=== PATIENT | female | born 1975 | race Caucasian/White ===

== ENCOUNTER 2018-11-17 06:04 | Day surgery (SDC) | payer BC ==
[~2018-11-17] VITALS: Ht 160 cm; Wt 55.5 kg
[~2018-11-17 06:04] MED LIST: CLARITIN-D 121 EACH PO; LEVSOD125 PO; MELO7.5; MELO7.5 PO
--- NOTE | 2018-11-17 06:59 | NUR ---
Ambulatory in Day Surgery History, Chart, Medications and Allergies reviewed before start of procedure. Lungs clear T/O to Auscultation. Patient confirms NPO status and agrees with scheduled surgery. Pre-Op teaching done. Pt verbalizes understanding.
--- NOTE | 2018-11-17 20:06 | NUR ---
POST OP: REPORT RECIEVED FROM VENDOR ANALYST. PT TO UNIT AT ABOUT 1232, FAMILY AT BEDSIDE. UPON ASSESSMENT PT IS IN NO VISABLE DISTRESS, IS A/O. VSS. PT DENIES NAUSEA, REPORTS 5/10 PAIN. SURGICAL SITE WNL. SOME NUMBNESS. ADMISSION ASSESSMENT COMPLETED AND TXA GIVEN. PT REPORT PAST NAUSEA AFTER SURGERY, WILL GO SLOW WITH PO INTAKE. PT GIVEN JELLO AND CRACKERS WITH NO NAUSEA. ZOFRAN GIVEN WITH PO PAIN MED. WILL CTM PT STATUS.
--- NOTE | 2018-11-17 20:16 | NUR ---
SUMMARY: NO ACUTE CHANGE SINCE POST OP. PT VSS, DID HAVE 300ML EMESIS, MEDICATED PER EMAR. PT ABLE TO AMBULATE TO COMMODE AND VOID. SURGICAL SITE WNL. NO SAFETY CONCERNS AT THIS TIME. WILL PASS REPORT TO DAY RN
[2018-11-18 04:24] LABS: BASOPHILS ABSOLUTE AUTO 0.01 K/mm3 (0.00-0.23); BASOPHILS PERCENT AUTO 0 % (0-2); EOSINOPHILS ABSOLUTE AUTO 0.02 K/mm3 (0.00-0.68); EOSINOPHILS PERCENT AUTO 0 % (0-6); Hematocrit 30.5 % (33.0-51.0); Hemoglobin 9.9 g/dL (11.5-16.0); IMMATURE GRAN ABSOLUTE AUTO 0.04 K/mm3 (0.00-0.10); IMMATURE GRAN PERCENT AUTO 1 % (0-1); LYMPHOCYTES ABSOLUTE AUTO 1.59 K/mm3 (0.84-5.20); LYMPHOCYTES PERCENT AUTO 18 % (21-46); MONOCYTES ABSOLUTE AUTO 0.72 K/mm3 (0.16-1.47); MONOCYTES PERCENT AUTO 8 % (4-13); Mean Corpuscular HGB 31.3 pg (26.0-34.0); Mean Corpuscular HGB Conc 32.5 g/dL (31.5-36.5); Mean Platelet Volume 9.4 fL (9.1-12.4); NEUTROPHILS ABSOLUTE AUTO 6.48 K/mm3 (1.96-9.15); NEUTROPHILS PERCENT AUTO 73 % (41-73); Platelet Count 210 K/mm3 (150-400); RDW Coefficient Variation 12.7 % (11.7-14.2); RDW Standard Deviation 44.8 fL (35.1-46.3); Red Blood Cell Count 3.16 M/mm3 (3.80-5.20); White Blood Cell Count 8.86 K/mm3 (4.00-11.30)
[2018-11-18 04:34] LABS: Mean Corpuscular Volume 97 fL (80-100)
[2018-11-18 04:36] LABS: Anion Gap 1 mmol/L (6-16); Blood Urea Nitrogen 7 mg/dL (8-24); Bun/Creatinine Ratio 13.9 (12.0-20.0); CO2, Blood 31 mmol/L (21-32); Chloride, Blood 111 mmol/L (98-108); Creatinine, Blood 0.51 mg/dL (0.40-1.00); Glomerular Filtration Rate >60 (60-); Glucose, Blood 110 mg/dL (70-99); Magnesium, Blood 1.9 mg/dL (1.6-2.4); Sodium, Blood 143 mmol/L (136-145)
--- NOTE | 2018-11-18 07:45 | NUR ---
DR CROW HERE RECENTLY AND CHANGED DRESSING. DISCUSSED VS, PAIN MEDICATION. PT DENIES DIZZINESS.
--- NOTE | 2018-11-18 07:49 | NUR ---
SUMMARY: POD [address] CROW. PT REMAINS HYPOTENSIVE THROUGHOUT SHIFT BUT DENIES DIZZINESS, VISION CHANGES OR SOB WHEN UP FOR BRP BUT REMAINS STEADY ON FEET WITH 1 PERSON ASSIST WITH GB AND FWW. PAIN WELL CONTROLLED DURING THIS SHIFT WITH 10MG ROXICODONE. PT MEDICATED WITH 5MG ROXICODONE THIS AM FOR CONTINUED HYPOTENSION AND MILD TO MODERATE RIGHT KNEE PAIN. TOLERATING PO INTAKE WELL, N/V APPEARS RESOLVED, VOIDING. ANTICIPATE PT/OT TODAY AND DC HOME.
[2018-11-18] MEDS ORDERED: ASPI325EC PO (10:08)
[2018-11-18] MEDS ORDERED: ROXICODONE5 MG PO (10:09)
[2018-11-18] MEDS ORDERED: PROM12.5S PO (10:16)
--- NOTE | 2018-11-18 13:51 | NUR ---
DISCHARGE; PT EATING AND DRINKING WELL. PT UP AND AMBULATED APPROX 400 FEET WITHOUT BECOMING DIZZY OR LIGHTHEADED. PT/FAMILY REPORTS UNDERSTANDING OF DISCHARGE INSTRUCTIONS. PT SENT WITH DRESSING SUPPLIES AND ICE MACHINE AND EDGARDO HOSE PER PT REQ. PT VOIDING WITHOUT DIFFICULTY.
== END 2018-11-18 14:01 | disposition home or self-care (01) ==
LOC: ORSCMMR 06:04 → ORD 10:30 → SURS 11:45 → ORSCMMR 11-18 14:01 → SURS 11-18 14:01
PROVIDERS: Orthopaedic Surgery
PROC: 8E0YXBZ Computer Assisted Procedure of Lower Extremity (ICD-10-PCS; principal; 2018-11-17 07:30)
PROC: 0SRC0J9 Replacement of Right Knee Joint with Synthetic Substitute, Cemented, Open Approach (ICD-10-PCS; principal; 2018-11-17 07:30)
DX: M17.11 Unilateral primary osteoarthritis, right knee (principal); Z79.899 Other long term (current) drug therapy
CPT/HCPCS: 36415; 73560-RT; 80048; 83735; 85025; 88300; 97110; 97116; 97162; 97530; C1713; C1776; J0171; J0690; J0735; J1100; J1885; J2250; J2405; J2550; J2704; J2765; J2795; J3010; J3370; J7120

== ENCOUNTER → 2020-08-23 | Outpatient (CLI) | payer BC ==
[~2020-08-23] MED LIST changes: +ASPI325EC PO; +PROM12.5S PO; +ROXICODONE5 MG PO
== END | disposition home or self-care (01) ==
LOC: PLD 08:21 → LAB SHORT 08:21
DX: R92.8 Other abnormal and inconclusive findings on diagnostic imaging of breast (principal)
CPT/HCPCS: 88305

== ENCOUNTER 2020-08-31 09:00 | Day surgery (SDC) | payer BC | END 2020-08-31 23:01 | disposition home or self-care (01) | LOC: MOI US 09:00 → MOI MAM 09:30 → MOI US 09:30 | DX: C50.812 Malignant neoplasm of overlapping sites of left female breast (principal); Z17.0 Estrogen receptor positive status [ER+] | CPT/HCPCS: 19083; 77065; 88305; 88342; 88360; A4648; G0279 ==

== ENCOUNTER → 2021-04-23 | Outpatient (CLI) | payer BC ==
[~2021-04-23] MED LIST changes: +MULVITA PO
[2021-04-23 13:48] LABS: Source, Urine Clean Catch
[2021-04-23 15:37] LABS: Appearance, Urine Clear (Clear); Bilirubin, Urine Neg (Neg); Blood, Urine 1+ (Neg); Color, Urine Yellow (P-Yellow); Glucose Qualitative, Urine Neg (Neg); Ketones, Urine Neg (Neg); Leukocyte Esterase, Urine 1+ (Neg); Nitrite, Urine Neg (Neg); Protein, Urine Neg (Neg); Urobilinogen, Urine NORM (Normal)
[2021-04-23 16:05] LABS: Calcium Oxalate Crystals Few /hpf
[2021-04-23 16:06] LABS: Bacteria Mod /hpf; Mucus Light (0-Heavy); Red Blood Cells, Urine 0-2 /hpf (0-2); Squamous Epithelial Cells Rare /hpf (Few)
== END ==
LOC: LAB 13:46 → LAB SHORT 13:46
PROVIDERS: Obstetrics & Gynecology
DX: R35.0 Frequency of micturition (principal)
CPT/HCPCS: 81001

== ENCOUNTER 2021-05-24 06:06 | Day surgery (SDC) | payer BC ==
[~2021-05-24] VITALS: Ht 160 cm; Wt 59.6 kg
[2021-05-24] MEDS ORDERED: ARIMIDEX1 M2 PO (06:32)
[2021-05-24] MEDS ORDERED: VITAMIN D33000 UNIT PO (06:32)
[2021-05-24] MEDS ORDERED: CALCIUM 500 MG1 EAC2 PO (06:33)
--- NOTE | 2021-05-24 07:20 | NUR ---
PT DIFFICULT IV START, BLOOD SENT FOR SERUM PREG PER ANESTHESIA. PT UNABLE TO VOID DESPITE ATTEMPT. IV FLUIDS STARTED. OR TIME DELAYED FOR PREG RESULTS.
--- NOTE | 2021-05-24 09:48 | NUR ---
PT ABLE TO URINATE
--- NOTE | 2021-05-24 10:04 | NUR ---
Discharge instructions reviewed with patient. Patient verbalizes understanding. Copy given to patient to take home. Dressing to procedure site clean, dry, intact with no visible drainage, swelling, erythema or bruising noted.
--- NOTE | 2021-05-24 10:17 | NUR ---
Discharged via wheelchair to private car for ride home.
== END 2021-05-24 10:19 | disposition home or self-care (01) ==
LOC: ORSCMMR 06:06 → ORD 09:30 → ORSCMMR 10:19
PROVIDERS: Obstetrics & Gynecology
PROC: 0UT74ZZ Resection of Bilateral Fallopian Tubes, Percutaneous Endoscopic Approach (ICD-10-PCS; principal; 2021-05-24 07:30)
PROC: 0UT24ZZ Resection of Bilateral Ovaries, Percutaneous Endoscopic Approach (ICD-10-PCS; principal; 2021-05-24 07:30)
DX: C50.919 Malignant neoplasm of unspecified site of unspecified female breast (principal); N80.1 Endometriosis of ovary; E03.9 Hypothyroidism, unspecified; Z79.899 Other long term (current) drug therapy
CPT/HCPCS: 84703; 88305; A9270; J1100; J1885; J2370; J2405; J2704; J3010; J7120

== ENCOUNTER → 2022-07-31 | Outpatient (CLI) | payer BC ==
[~2022-07-31] MED LIST changes: +ARIMIDEX1 M2 PO; +CALCIUM 500 MG1 EAC2 PO; +VITAMIN D33000 UNIT PO
[2022-08-06 16:11] LABS: HPV 16 Negative (Negative); HPV 18 Negative (Negative); HPV OTHER HR TYPES Negative (Negative)
== END | disposition home or self-care (01) ==
LOC: LAB 16:00 → LAB SHORT 16:00
PROVIDERS: Obstetrics & Gynecology
DX: Z01.419 Encounter for gynecological examination (general) (routine) without abnormal findings (principal)
CPT/HCPCS: 87624; G0145

== ENCOUNTER 2023-05-12 07:35 | Day surgery (SDC) | payer BC ==
[2023-05-12] VITALS (23 sets, daily range): BP systolic 67–116; BP diastolic 49–76
[~2023-05-12 07:35] MED LIST changes: +LEVOTHYROXINE100 M10 PO; +VERZENIO100 MG PO
--- NOTE | 2023-05-12 08:38 | NUR ---
05/12/23 08Edilia Duckworth HISTORY, CHART, MEDICATIONS AND ALLERGIES REVIEWED BEFORE START OF PROCEDURE. PATIENT CONFIRMS NPO STATUS AND AGREES WITH SCHEDULED PROCEDURE. 3-LEAD EKG REVIEWED WITH PHYSICIAN PRIOR TO START OF PROCEDURE. MONITOR INTACT WITH CONTINUOUS PULSE OXIMETRY,CAPNOGRAPHY, 3-LEAD EKG, INTERMITTENT BP. SUPPLEMENTAL O2 TO BE TITRATED THROUGHOUT PROCEDURE TO MAINTAIN O2 SATURATION ABOVE 90%. PATIENT DETERMINED TO BE ASA APPROPRIATE FOR PROPOFOL SEDATION PRIOR TO START OF PROCEDURE BY .
--- NOTE | 2023-05-12 09:38 | NUR ---
Discharge instructions reviewed with patient. Patient verbalizes understanding. Copy given to patient to take home. Discharged via wheelchair to private car for ride home.
== END 2023-05-12 09:40 | disposition home or self-care (01) ==
LOC: ORSCMMR 07:35 → ORD 08:30 → ORSCMMR 08:30
PROVIDERS: Internal Medicine Gastroenterology
PROC: 0DBN8ZX Excision of Sigmoid Colon, Via Natural or Artificial Opening Endoscopic, Diagnostic (ICD-10-PCS; principal; 2023-05-12 08:30)
DX: Z12.11 Encounter for screening for malignant neoplasm of colon (principal); D12.5 Benign neoplasm of sigmoid colon; Z85.3 Personal history of malignant neoplasm of breast; E03.9 Hypothyroidism, unspecified; Z79.899 Other long term (current) drug therapy
CPT/HCPCS: 88305; J2250; J2704; J7120

== ENCOUNTER 2023-12-16 07:27 | Day surgery (SDC) | payer BC ==
[2023-12-16] VITALS (18 sets, daily range): BP systolic 77–109; BP diastolic 47–83
[~2023-12-16] VITALS: Ht 160 cm; Wt 59.2 kg
[~2023-12-16 07:27] MED LIST changes: +EUTHYROX100 MCG PO; +Lactated Ringer's 1,000 ML IV SCH; +ePHEDrine Sulfate 50 MG/ML 1ML Injection ONE; +propofoL 20 ML IV ONE
--- NOTE | 2023-12-16 08:13 | NUR ---
PRE PROCEDURE NOTE PT A&OX4, CALM, NO COMPLAINTS. Ambulatory in Day Surgery Patient confirms NPO status and agrees with scheduled surgery. Pre-Op teaching done. Pt verbalizes understanding. Patient States Post-Procedure ride home has been arranged.
[2023-12-16] MEDS ORDERED: Midazolam HCl 1MG / ML 2ML Vial ONE (08:17)
--- NOTE | 2023-12-16 08:35 | NUR ---
12/16/23 0835 Ashley Cowan HISTORY, CHART, MEDICATIONS AND ALLERGIES REVIEWED BEFORE START OF PROCEDURE. PATIENT CONFIRMS NPO STATUS AND AGREES WITH SCHEDULED PROCEDURE. 3-LEAD EKG REVIEWED WITH PHYSICIAN PRIOR TO START OF PROCEDURE. MONITOR INTACT WITH CONTINUOUS PULSE OXIMETRY,CAPNOGRAPHY, 3-LEAD EKG, INTERMITTENT BP. SUPPLEMENTAL O2 TO BE TITRATED THROUGHOUT PROCEDURE TO MAINTAIN O2 SATURATION ABOVE 90%. PATIENT DETERMINED TO BE ASA APPROPRIATE FOR PROPOFOL SEDATION PRIOR TO START OF PROCEDURE BY DR. CHISHOLM
--- NOTE | 2023-12-16 09:35 | NUR ---
Ambulatory in Day Surgery Discharge instructions reviewed with patient. Patient verbalizes understanding. Copy given to patient to take home. Patient States Post-Procedure ride home has been arranged. Discharged via wheelchair to private car for ride home.
== END 2023-12-16 09:30 | disposition home or self-care (01) ==
LOC: ORSCMMR 07:27 → ORD 08:30 → ORSCMMR 08:30
PROVIDERS: Internal Medicine Gastroenterology
PROC: 0DBN8ZX Excision of Sigmoid Colon, Via Natural or Artificial Opening Endoscopic, Diagnostic (ICD-10-PCS; principal; 2023-12-16 08:30)
PROC: 0DBL8ZX Excision of Transverse Colon, Via Natural or Artificial Opening Endoscopic, Diagnostic (ICD-10-PCS; principal; 2023-12-16 08:30)
DX: Z86.010 Personal history of colon polyps (principal); D12.3 Benign neoplasm of transverse colon; D37.4 Neoplasm of uncertain behavior of colon; Z83.719 Family history of colon polyps, unspecified; E03.9 Hypothyroidism, unspecified; Z85.3 Personal history of malignant neoplasm of breast; Z79.899 Other long term (current) drug therapy
CPT/HCPCS: 88305; J2250; J2704; J7120

== ENCOUNTER 2024-09-14 08:47 | Day surgery (SDC) | payer BC ==
[2024-09-14] VITALS (16 sets, daily range): BP systolic 88–118; BP diastolic 59–81
[~2024-09-14] VITALS: Ht 162.6 cm; Wt 57.9 kg
[~2024-09-14 08:47] MED LIST changes: +ASCO500 PO; +Acetaminophen 500 MG Tab PO SCH; +CALCIUM CARBON500 M1 PO; +CENTRUM SILVER1 EAC2 PO; +CeFAZolin Sodium 2,000 MG in NS 100 ML IV SCH; +Chlorhexidine Mouth Care 15 ML UDC MT SCH; +ELDERBERRY350 MG PO; -EUTHYROX100 MCG PO; +LEVSOD137 PO; +OxyCODONE HCL 10 MG TABCR PO SCH; +Ropivacaine 0.5% HCl/Pf 123.125 MG,EPINEPHrine HCL 0.25 MG,Ketorolac Tromethamine 15 MG... INFIL SCH; +Tranexamic Acid 100 ML IV SCH; +VITAMIN D310 MC4 PO; +Vancomycin HCL 1,000 MG in NS 250 ML IV SCH; -ePHEDrine Sulfate 50 MG/ML 1ML Injection ONE; -propofoL 20 ML IV ONE
[2024-09-14] MEDS ORDERED: Metoclopramide HCl 5MG / ML 2ML Vial IV PRN (10:20)
[2024-09-14] MEDS ORDERED: Promethazine HCl 25 MG Tab PO PRN (10:25)
[2024-09-14] MEDS ORDERED: HYDROmorphone HCl/Pf 1MG SYR IV PRN ×3 (10:25→12:15)
[2024-09-14] MEDS ORDERED: Ondansetron HCl 2 MG / ML 2ML Vial IV PRN ×2 (10:25→12:10)
[2024-09-14] MEDS ORDERED: Magnesium Hydroxide Conc 10 ML UDC PO PRN (10:25)
[2024-09-14] MEDS ORDERED: FentaNYL Citrate 50 MCG/ML 2 ML Injection ONE ×2 (10:29→13:26)
[2024-09-14] MEDS ORDERED: Midazolam HCl 1MG / ML 2ML Vial ONE ×2 (10:29→11:09)
[2024-09-14] MEDS ORDERED: Bisacodyl 10 MG Supp PR PRN (10:30)
[2024-09-14] MEDS ORDERED: DiphenhydrAMINE HCL 25 MG Cap PO PRN (10:30)
[2024-09-14] MEDS ORDERED: HYDROcodone 5-APAP 325 TAB PO PRN (10:30)
[2024-09-14] MEDS ORDERED: propofoL 60 ML IV ONE (10:30)
[2024-09-14] MEDS ORDERED: Lactated Ringer's 1,000 ML IV SCH (10:40)
[2024-09-14] MEDS ORDERED: Ketorolac Tromethamine 15mg Vial IV SCH (12:00)
[2024-09-14] MEDS ORDERED: Ondansetron HCl 2 MG / ML 2ML Vial ONE (12:04)
[2024-09-14] MEDS ORDERED: Scopolamine Hydrobromide Patch TOP SCH (12:10)
[2024-09-14] MEDS ORDERED: FentaNYL Citrate 50 MCG/ML 2 ML Injection IV PRN ×2 (12:10→12:15)
[2024-09-14] MEDS ORDERED: Scopolamine Hydrobromide Patch ONE (13:20)
[2024-09-14] MEDS ORDERED: Ketorolac Tromethamine 30mg Vial ONE (13:32)
--- NOTE | 2024-09-14 14:33 | NUR ---
PT TO ROOM 212 FROM PACU. ALERT TO VERBAL. POLAR PACK/DRE WRAP TO KNEE. ABLE TO WIGGLE TOES/FULL SENSATION DISTALLY. POST OP VS STABLE. WILL CONTINUE TO MONITOR.
[2024-09-14] MEDS ORDERED: Acetaminophen 500 MG Tab PO SCH (16:00)
--- NOTE | 2024-09-14 18:07 | NUR ---
END OF SHIFT PT SITTING UP IN CHAIR. EATING MEAL TRAY. POST OP ABX INFUSING R HAND. PT AGREES TO ATTEMPT TO VOID AFTER MEAL TRAY. WILL CONTINUE TO MONITOR.
[2024-09-14] MEDS ORDERED: CeFAZolin Sodium 2,000 MG in NS 100 ML IV SCH (18:45)
[2024-09-14] MEDS ORDERED: Docusate Sodium 100 MG Cap PO SCH (21:00)
[2024-09-14] MEDS ORDERED: Vancomycin HCL 1,000 MG in NS 250 ML IV SCH (21:45)
[2024-09-15 00:15] VITALS: BP 95/64
[2024-09-15 04:35] VITALS: BP 96/66
[2024-09-15 05:12] LABS: BASOPHILS ABSOLUTE AUTO 0.02 K/mm3 (0.00-0.23); BASOPHILS PERCENT AUTO 0 % (0-2); EOSINOPHILS ABSOLUTE AUTO 0.11 K/mm3 (0.00-0.68); EOSINOPHILS PERCENT AUTO 2 % (0-6); Hematocrit 31.6 % (33.0-51.0); Hemoglobin 10.5 g/dL (11.5-16.0); IMMATURE GRAN ABSOLUTE AUTO 0.01 K/mm3 (0.00-0.10); IMMATURE GRAN PERCENT AUTO 0 % (0-1); LYMPHOCYTES ABSOLUTE AUTO 1.47 K/mm3 (0.84-5.20); LYMPHOCYTES PERCENT AUTO 25 % (21-46); MONOCYTES ABSOLUTE AUTO 0.56 K/mm3 (0.16-1.47); MONOCYTES PERCENT AUTO 9 % (4-13); Mean Corpuscular HGB 29.6 pg (26.0-34.0); Mean Corpuscular HGB Conc 33.2 g/dL (31.5-36.5); Mean Corpuscular Volume 89 fL (80-100); Mean Platelet Volume 8.2 fL (9.1-12.4); NEUTROPHILS ABSOLUTE AUTO 3.76 K/mm3 (1.96-9.15); NEUTROPHILS PERCENT AUTO 63 % (41-73); Platelet Count 193 K/mm3 (150-400); RDW Standard Deviation 42.5 fL (35.1-46.3); Red Blood Cell Count 3.55 M/mm3 (3.80-5.20); White Blood Cell Count 5.93 K/mm3 (4.00-11.30)
[2024-09-15 05:35] LABS: Bun/Creatinine Ratio 21.2 (12.0-20.0); Calcium, Blood 8.2 mg/dL (8.5-10.1); Creatinine, Blood 0.47 mg/dL (0.40-1.00); Potassium, Blood 3.9 mmol/L (3.5-5.5)
[2024-09-15] MEDS ORDERED: Levothyroxine Sodium 0.137 MG Tab PO SCH (06:00)
[2024-09-15 07:16] VITALS: BP 94/55
--- NOTE | 2024-09-15 07:39 | NUR ---
SHIFT SUMMARY NOC. PT POD 1 FOR LEFT TOTAL KNEE. PT'S DRESSING C/D/I. PT'S BLOOD PRESSURE HYPOTENSIVE THIS SHIFT MAP ABOVE 65. PT REPORTS LOW BP AT BASELINE. DISCUSSED WITH INDEPENDENT LIVING ADVISOR, PLACED ON LR PER EMAR ORDERS. DENIES DIZZINESS OR LIGHTHEADEDNESS. PT MEDICATED FOR PAIN WITH REPORTED RELIEF OF SX. PT MAKES NEEDS KNOWN. CALL LIGHT IN REACH.
--- NOTE | 2024-09-15 08:01 | NUR ---
Pt. is awake and sitting in a recliner. Pts. first response was guarded, but as I facilitated a life review the Pt. displayued evidence of warmth and connection. Pt. verbalized her spiritual journey and how breat cancer in 2020 olivia her back to [place]. Listen with interest and empathy. Considered many matters of family, amarjit, and belief. When Pts. doctor arrived this bait maker excused himself. Pt. verbalized gratitude for the spiritual care visit.
[2024-09-15] MEDS ORDERED: Multivitamins/Minerals 1 Tab PO SCH (09:00)
[2024-09-15] MEDS ORDERED: ELDERBERRY PO SCH (09:00)
[2024-09-15] MEDS ORDERED: Trimethoprim/Sulfamethoxazole DS Tab PO SCH (09:00)
[2024-09-15] MEDS ORDERED: Cholecalciferol 400 unit Tab PO SCH (09:00)
[2024-09-15] MEDS ORDERED: Ascorbic Acid 500 MG Tab PO SCH (09:00)
[2024-09-15] MEDS ORDERED: Calcium Carbonate 1,250 MG TABLET PO SCH (09:00)
[2024-09-15] MEDS ORDERED: Anastrozole 1 MG TAB PO SCH (09:00)
--- NOTE | 2024-09-15 10:08 | NUR ---
DC INSTRUCT REVIEWED. STATED UNDERSTANDING. PRINTED INSTRUCT DISPENSED. STATED UNDERSTANDING. WILL DC TO POV AFTER MORNING HYGEIENE
[2024-09-15] MEDS ORDERED: Rivaroxaban 10 MG Tab PO SCH (19:00)
== END 2024-09-15 10:37 | disposition home or self-care (01) ==
LOC: ORSCMMR 08:47 → ORD 10:45 → ORSCMMR 14:29 → SURS 14:29 → ORSCMMR 09-15 10:37
PROVIDERS: Orthopaedic Surgery
PROC: 0SRD0JA Replacement of Left Knee Joint with Synthetic Substitute, Uncemented, Open Approach (ICD-10-PCS; principal; 2024-09-14 10:45)
DX: M17.12 Unilateral primary osteoarthritis, left knee (principal); Z96.651 Presence of right artificial knee joint; E03.9 Hypothyroidism, unspecified; Z79.899 Other long term (current) drug therapy; Z85.3 Personal history of malignant neoplasm of breast
CPT/HCPCS: 36415; 73560-LT; 80048; 83735; 85025; 97110; 97116; 97161; 97530; A9270; C1713; C1776; J0171; J0690; J0735; J1885; J2250; J2405; J2704; J2795; J3010; J3370; J7050; J7120